=== PATIENT | female | born 1965 | race Caucasian/White ===

== ENCOUNTER 2023-04-16 19:41 | Observation (INO) | payer MEDICAID, SELFPAY ==
--- NOTE | ~2023-04-16 | MR_ITS ---
EXAMINATION: MR BRAIN WITHOUT CONTRAST CLINICAL INFORMATION: Query CVA COMPARISON: CT head on 03/18/2023 TECHNIQUE: MRI of the brain was obtained using routine sequences without contrast. FINDINGS: No acute intracranial hemorrhage or infarct. Scattered and confluent periventricular white matter T2/FLAIR hyperintensities, nonspecific however commonly seen with small vessel ischemic disease. No midline shift or hydrocephalus. Cavum septum pellucidum and vergae. No acute extra-axial fluid collections. The osseous structures are unremarkable. The pituitary gland, pineal gland and remaining midline structures are unremarkable. No orbital pathology. Mild mucosal thickening of the paranasal sinuses. The mastoid air cells are clear. MR/MR head/brain wo con IMPRESSION: No acute intracranial abnormalities.
--- NOTE | ~2023-04-16 | CT_ITS ---
EXAMINATION: CT HEAD WITHOUT CONTRAST CLINICAL INFORMATION: Vertigo COMPARISON: None available. TECHNIQUE: Contiguous axial imaging was performed from the skull base to vertex without intravenous administration of contrast. This CT examination was performed using dose optimization techniques as appropriate, variously including the following: *Automated exposure control *Adjustment of mA and/or kV according to patient size (this includes techniques or standardized protocols for targeted exams where dose is matched to indication/reason for exam; i.e. extremities or head) *Use of iterative reconstruction technique DLP: 616 mGy-cm FINDINGS: There is no intracranial hemorrhage. There is no evidence of acute/subacute cerebral or cerebellar infarction. There is no midline shift or mass effect. No extra-axial fluid collection. Ventricular size is normal. The calvarium is intact. The visualized paranasal sinuses are well aerated. The mastoid air cells are clear. The orbits are symmetric and within normal limits. CT/CT head/brain wo IV con IMPRESSION: No acute intracranial pathology.
--- NOTE | 2023-04-16 19:54 | ECG_ITS ---
Test Reason : SOB Blood Pressure : / mmHG Vent. Rate : 083 BPM Atrial Rate : 083 BPM P-R Int : 164 ms QRS Dur : 080 ms QT Int : 396 ms P-R-T Axes : 072 040 044 degrees QTc Int : 465 ms Normal sinus rhythm Possible Left atrial enlargement ST & T wave abnormality, consider anterolateral ischemia Prolonged QT Abnormal ECG No previous ECGs available Referred By: Generic ED Physician Electronically Signed By:JED JALLOH
[2023-04-16 20:03] VITALS: BP 117/49; PULSE 80; RESP 17; TEMP 35.9; O2SAT 100
[2023-04-16 20:07] VITALS: BP 110/62; PULSE 82; O2SAT 98; BMI 23.8
[2023-04-16 20:31] LABS: MANUAL DIFF FLAG NO
[2023-04-16 20:32] LABS: Basophils Absolute Auto 0.1 X10*3/uL (0.0-0.2); Basophils Percent Auto 0.4 % (0-2); Eosinophils Absolute Auto 0.1 X10*3/uL (0.0-0.4); Eosinophils Percent Auto 0.9 % (0-4); Hematocrit 37.3 % (37.0-47.0); Hemoglobin 12.6 g/dl (12.0-16.0); Imm Gran Abs Auto 0.12 X10*3/uL (0.00-0.03); Imm Gran Pct Auto 0.9 % (0.0-0.4); Lymphocytes Absolute Auto 3.1 X10*3/uL (1.2-4.9); Mean Corpuscular HGB Conc 33.8 g/dl (31.0-35.0); Mean Corpuscular Hemoglobin 28.1 pg (27.0-33.0); Mean Corpuscular Volume 83.3 fL (80.0-98.0); Mean Platelet Volume 9.4 fL (9.4-12.3); Monocytes Absolute Auto 0.7 X10*3/uL (0.1-1.2); Monocytes Percent Auto 4.9 % (2-11); Neutrophils Absolute Auto 9.4 x10*3/uL (2.0-8.3); Neutrophils Percent Auto 69.9 % (45-73); Platelet Count 310 X10*3/uL (160-400); Red Blood Count 4.48 X10*6/uL (4.20-5.50); Red Cell Distribution Width 13.2 % (11.0-16.0); White Blood Count 13.5 X10*3/uL (4.8-10.8)
--- NOTE | 2023-04-16 20:33 | ED.NAVMDI ---
HPI - Nausea/Vomiting/Diarrhea General Chief complaint: Nausea/Vomiting/Diarrhea Stated complaint: NVD x1 hour, ukranian speaking Time Seen by Provider: 04/16/23 20:28 Source: patient and EMS Mode of arrival: EMS Limitations: language barrier History of Present Illness HPI Narrative: History obtained with Kinyarwanda gauge and weigh machine adjuster. She developed room spinning followed by vomiting. She has been unable to move because it causes her to vomit. She denies fever, earache or headache. MD elicited complaint: nausea and vomiting Onset (ago): hour(s) Associated nausea: Yes Associated symptoms: other (dizziness) Related Data Previous Rx's Medication Instructions Recorded meclizine 25 mg tablet 25 mg PO TID #20 tabs 04/16/23 Allergies Allergy/AdvReac Type Severity Reaction Status Date / Time No Known Allergies Allergy Verified 04/16/23 20:07 Review of Systems Review of Systems: Yes all other systems are reviewed and are negative Gastrointestinal: Gastrointestinal: Reports nausea Neurologic: Denies Sensory deficit (Neuro) [facility] Social History Social History Smoked in Last 30 Days: No Use of substances other than those prescribed or required for medical reasons: No Advance Directives: No Advance Directives Information Provided: No Patient : No Physical Exam Vital Signs: Vital Signs: Last Vital Signs Temp 96.6 F L 04/16/23 20:03 Pulse 67 04/16/23 21:58 Resp 12 04/16/23 21:58 BP 118/49 L 04/16/23 21:58 Pulse Ox 100 04/16/23 21:58 O2 Del Method Room Air 04/16/23 21:58 BMI result Body Mass Index 23.8 Const: Other: Patient appearing pale with continual vomiting Nutritional Appearance: average body habitus Orientation/consciousness: oriented to person and patient oriented x3 Limitations: no limitations HEENT: Head: Yes normal to inspection Ears: external ears normal and other (cerumen bilaterally) General nose exam: Normal external nose present Mouth: Normal oral and palatal mucosa present and oropharynx normal Throat: Yes posterior oropharynx normal Eyes: Other: rotatory nystagmus on left lateral gaze Neck: Other: supple Neck: Yes normal visual inspection Chest: Chest palpation & inspection: normal inspection of the chest Resp: Auscultation: clear to auscultation bilaterally Cardio: Jugular venous distension: no JVD Rate: regular rate Rhythm: regular rhythm Heart sounds: S1 normal heart sound present and S2 normal heart sound present GI: Inspection: Yes normal to inspection Palpation (GI): Soft to palpation, nontender and No hepatosplenomegaly present Auscultation: normal bowel sounds : General: Yes no CVA tenderness Back/Spine/Pelvis: Back: no CVA tenderness Skin: General skin exam: no rashes or lesions noted Neuro: General: oriented to person and patient oriented x3 Cranial nerves: Yes CN's II-XII intact bilaterally Motor exam (neuro): 5/5 motor strength present throughout Sensory Exam: No Sensory deficit (Neuro) Extrem: General: Yes normal to inspection Psych: Appearance: grossly normal Course Reevaluation(s) Reevaluation #1: patient vomited her meclizine after 15 minutes will give 25mg more, she is not ready to be discharged Time: 22:24 Reevaluation #2: physician observation: patient placed now for continued vertigo, she is still vomiting, pale and diaphoretic. She is placed in observation to see if she will improve Time: 22:30 Medications Administered Generic Name Dose Route Start Last Admin Trade Name Freq PRN Reason Stop Dose Admin Sodium Chloride 1,000 mls @ 500 mls/hr 04/16/23 20:45 04/16/23 20:42 Ns IVCONT 04/16/23 22:44 500 mls/hr .Q2H PATRICIA Administration Discontinued Medications Generic Name Dose Route Start Last Admin Trade Name Freq PRN Reason Stop Dose Admin Meclizine HCl 50 mg 04/16/23 20:53 04/16/23 21:29 Meclizine Hcl 25 Mg Tablet PO 04/16/23 20:54 50 mg ONCE ONE Administration Ondansetron HCl 4 mg 04/16/23 20:34 04/16/23 20:43 Ondansetron Hcl 4 Mg/2 Ml Vial IVPUSH 04/16/23 20:35 4 mg ONCE ONE Administration Medical Decision Making Differential Diagnosis Differential Diagnoses: The differential diagnosis associated with the presentation includes (cerebral bleed, cva, vertigo, gastrits were all considered) Admission/Observation Consideration of admission/observation: Escalation of care including admission/observation considered (upon arrival patient was considered for admission) Consult Healthcare Provider Discussed with Dr. Wilson who will take patient over Lab Data 04/16/23 20:26 04/16/23 20:26 Labs: Lab Results 04/16/23 Range/Units 20:26 WBC 13.5 H (4.8-10.8) X10*3/uL RBC 4.48 (4.20-5.50) X10*6/uL Hgb 12.6 (12.0-16.0) g/dl Hct 37.3 (37.0-47.0) % MCV 83.3 (80.0-98.0) fL MCH 28.1 (27.0-33.0) pg MCHC 33.8 (31.0-35.0) g/dl RDW 13.2 (11.0-16.0) % Plt Count 310 (160-400) X10*3/uL MPV 9.4 (9.4-12.3) fL Immature Gran % (Auto) 0.9 H (0.0-0.4) % Neut % (Auto) 69.9 (45-73) % Lymph % (Auto) 23.0 (20-40) % Hand % (Auto) 4.9 (2-11) % Eos % (Auto) 0.9 (0-4) % Baso % (Auto) 0.4 (0-2) % Lymph # (Auto) 3.1 (1.2-4.9) X10*3/uL Hand # (Auto) 0.7 (0.1-1.2) X10*3/uL Eos # (Auto) 0.1 (0.0-0.4) X10*3/uL Baso # (Auto) 0.1 (0.0-0.2) X10*3/uL Abs Immat Gran (auto) 0.12 H (0.00-0.03) X10*3/uL Absolute Neuts (auto) 9.4 H (2.0-8.3) x10*3/uL Absolute Nucleated RBC 0.000 (0.0-0.012) X10*3/uL Nucleated RBC % (auto) 0.0 (0.0-0.2) /100WBC Sodium 145 (135-145) mmol/L Potassium 3.2 L (3.3-5.1) mmol/L Chloride 108 (96-108) mmol/L Carbon Dioxide 21 L (22-29) mmol/L Anion Gap 19 (12-20) BUN 15 (9-16) mg/dL Creatinine 0.79 (0.5-1.4) mg/dL Estim Creat Clear Calc 85.9 Estimated GFR > 60 Random Glucose 132 H (60-115) mg/dL Calcium 10.0 (8.4-10.2) mg/dL Total Bilirubin 0.6 (0.0-1.0) mg/dL AST 25 (5-31) U/L ALT 27 (0-31) U/L Alkaline Phosphatase 65 (39-117) U/L Troponin I High Sens < 2.7 (<3.5-17.0) ng/L Total Protein 8.0 (6.5-8.0) g/dL Albumin 4.6 (3.5-5.0) g/dL COVID-19 (VIPIN) Negative (Negative) COVID-19 Clin Com See Note Influenza Type A (ESTEFANY) Negative (Negative) Influenza Type B (ESTEFANY) Negative (Negative) Influenza A & B Note See Note Independent Interpretation I performed an independent interpretation of an: EKG (sinus 80, diffuse nonspecific twave changes) and CT Scan (head: no bleed or mass) Radiology Impression Discussion of test interpretation with radiology: I have reviewed the radiologist's reading. Independent Historian Clinical information obtained from an independent historian. History obtained from or confirmed by: EMS and Other (son) Tests considered The following testing was considered but not selected: MRI of brain but this is first episode of vertigo and cT of head negative Discharge Plan Discharge Clinical Impression: Vertigo Patient Disposition: Still a Patient Instructions: Vertigo (ED) Prescriptions: New meclizine 25 mg tablet 25 mg PO TID Qty: 20 0RF Referrals: Physician,Unknown J [Primary Care Provider] - 5 days
[2023-04-16] MEDS: 0.9 % Sodium Chloride 1,000 ML 500 ML IVCONT (20:42)
[2023-04-16] MEDS: ondansetron HCL 4 MG/2 ML VIAL IVPUSH (20:43)
--- NOTE | 2023-04-16 20:43 | PC.NURSE ---
IVF/medication administered per provider order. ED provider bedside speaking w/ pt using Mongolian coiler operator services. pt actively vomiting at this time.
[2023-04-16 20:47] LABS: Alanine Aminotransferase 27 U/L (0-31); Albumin Level 4.6 g/dL (3.5-5.0); Alkaline Phosphatase 65 U/L (39-117); Anion Gap 19 (12-20); Aspartate Amino Transferase 25 U/L (5-31); Bilirubin Total 0.6 mg/dL (0.0-1.0); Blood Urea Nitrogen 15 mg/dL (9-16); Carbon Dioxide 21 mmol/L (22-29); Chloride 108 mmol/L (96-108); Creatinine Clr Calc Pharmacy 85.9; Estimated Glomerular Filt Rate > 60; Glucose Random 132 mg/dL (60-115); Potassium 3.2 mmol/L (3.3-5.1); Sodium 145 mmol/L (135-145)
[2023-04-16 20:50] LABS: IDNOW Serial# 152EDE1D; Influenza A Negative (Negative); Influenza B2 Negative (Negative)
[2023-04-16 20:51] LABS: COVID-19 Test Negative (Negative); IDNOW Serial# 08D9AD1C
[2023-04-16 20:56] LABS: Troponin-I High Sensitivity < 2.7 ng/L (<3.5-17.0)
--- NOTE | 2023-04-16 21:11 | PC.NURSE ---
pt to CT at this time. will administer medication when pt returns.
[2023-04-16] MEDS: Meclizine HCl 25 MG TABLET 50 MG PO (21:29)
--- NOTE | 2023-04-16 21:32 | PC.NURSE ---
pt medicated via PO at this time. effectiveness pending as well as ability to tolerate PO intake successfully. family bedside. call matos placed within reach.
[2023-04-16 21:58] VITALS: BP 118/49; PULSE 67; RESP 12; O2SAT 100
[2023-04-16 23:39] VITALS: BP 134/62; PULSE 72; RESP 14; O2SAT 100
[2023-04-17] MEDS: ondansetron HCL 4 MG/2 ML VIAL IVPUSH (00:03)
[2023-04-17] MEDS: LORazepam 2 MG/ML VIAL IVPUSH (00:03)
[2023-04-17] MEDS: Meclizine HCl 25 MG TABLET PO (00:04)
[2023-04-17] MEDS: 0.9 % Sodium Chloride 1,000 ML 999 ML IV (00:04)
--- NOTE | 2023-04-17 01:18 | PM.IMHP ---
History of Present Illness Date of Service: 04/17/23 Chief Complaint: Dizziness This is a 57-year-old female with no pertinent past medical history and not on prescription medications who presents to the emergency department for evaluation of dizziness. History obtained with the help of son at bedside as patient is [place] and does not speak Amharic. Patient states she had sudden onset of dizziness while she was lying down. This has never happened before. She also had sensation of room spinning. It was associated with nausea and multiple episodes of nonbloody emesis. Patient states that she also has dizziness with nausea every time she moves. Does endorse issues with balance. No vision changes. No fever, chills, chest discomfort, palpitations, abdominal pain, changes in urinary or bowel habits. In the emergency department, patient with continued dizziness despite multiple doses of meclizine. Potassium was found to be 3.2 Review of Systems Constitutional: Constitutional: Reports no additional constitutional complaints ENT: Reports dizziness Cardiovascular: Cardiovascular: Reports no additional cardiovascular complaints Respiratory: Respiratory: Reports no additional respiratory complaints Gastrointestinal: Gastrointestinal: Reports nausea and Reports vomiting Genitourinary: Genitourinary: Reports no additional female genitourinary complaints Neurologic: Reports dizziness PMFSH Pertinent family history: No family history of early CAD Social History Smoked in Last 30 Days: No Use of substances other than those prescribed or required for medical reasons: No Advance Directives: No Advance Directives Information Provided: No Patient : No Meds Allergies Allergy/AdvReac Type Severity Reaction Status Date / Time No Known Allergies Allergy Verified 04/16/23 20:07 Physical Exam Vital Signs and Narrative: Vital Signs: Last Vital Signs Temp 96.6 F L 04/16/23 20:03 Pulse 72 04/16/23 23:39 Resp 14 04/16/23 23:39 BP 134/62 04/16/23 23:39 Pulse Ox 100 04/16/23 23:39 O2 Del Method Room Air 04/16/23 23:39 BMI result Body Mass Index 23.8 Middle-aged female lying in bed in no distress Neck supple, no JVD Regular rate and rhythm, S1-S2 heard Regular breath sounds bilaterally, no wheezing or crackles appreciated Abdomen soft nontender, no guarding, no rigidity Patient is awake, alert and oriented to self, place, time and person ; no nystagmus, vertical skew test negative Psych: Normal mood No pedal edema Results Labs 04/16/23 20:26 04/16/23 20:26 Labs: Laboratory Results - last 24 hr 04/16/23 04/16/23 20:26 23:58 MCV 83.3 MCH 28.1 MCHC 33.8 RDW 13.2 Plt Count 310 MPV 9.4 Immature Gran % (Auto) 0.9 H Neut % (Auto) 69.9 Lymph % (Auto) 23.0 [place] % (Auto) 4.9 Eos % (Auto) 0.9 Baso % (Auto) 0.4 Lymph # (Auto) 3.1 [place] # (Auto) 0.7 Eos # (Auto) 0.1 Baso # (Auto) 0.1 Abs Immat Gran (auto) 0.12 H Absolute Neuts (auto) 9.4 H Absolute Nucleated RBC 0.000 Nucleated RBC % (auto) 0.0 APTT 28.0 Anion Gap 19 Estim Creat Clear Calc 85.9 Estimated GFR > 60 Random Glucose 132 H Calcium 10.0 Total Bilirubin 0.6 AST 25 ALT 27 Alkaline Phosphatase 65 Troponin I High Sens < 2.7 Total Protein 8.0 Albumin 4.6 COVID-19 (VIPIN) Negative COVID-19 Clin Com See Note Influenza Type A (ESTEFANY) Negative Influenza Type B (ESTEFANY) Negative Influenza A & B Note See Note Imaging Radiologist's Impressions: Impressions Head CT 04/16/23 21:14 IMPRESSION: No acute intracranial pathology. Assessment and Plan (1) Vertigo: Status: Acute Plan This is a 57-year-old female with no pertinent past medical history and not on prescription medications who presents to the emergency department for evaluation of dizziness. #. Vertigo, sudden onset with nausea and vomiting: Will admit patient and obtain MRI to rule out central etiology. Symptomatic treatment #. Hypokalemia due to GI losses: Repleted #. Reactive leukocytosis DVT prophylaxis: Lovenox Full code Quality Stroke Does the patient have a stroke diagnosis?: No VTE Prior VTE?: No VTE Risk Level:: Medical - moderate - high VTE Device Contraindication: Treatment Not Indicated VTE Drug Contraindication: N/A - Med Ordered
[2023-04-17] MEDS: Potassium Chloride/H20 10 MEQ/100 ML PIGGYBACK 100 MEQ IV ×4 (01:49→05:38)
[2023-04-17 03:37] VITALS: BP 115/59; PULSE 80; RESP 16; O2SAT 96
[2023-04-17 05:18] LABS: MANUAL DIFF FLAG NO
[2023-04-17 05:24] LABS: Basophils Percent Auto 0.1 % (0-2); Hematocrit 30.4 % (37.0-47.0); Hemoglobin 10.3 g/dl (12.0-16.0); Imm Gran Abs Auto 0.05 X10*3/uL (0.00-0.03); Imm Gran Pct Auto 0.4 % (0.0-0.4); Lymphocytes Absolute Auto 1.4 X10*3/uL (1.2-4.9); Lymphocytes Percent Auto 12.6 % (20-40); Mean Corpuscular HGB Conc 33.9 g/dl (31.0-35.0); Mean Corpuscular Hemoglobin 28.5 pg (27.0-33.0); Mean Platelet Volume 9.4 fL (9.4-12.3); Monocytes Absolute Auto 0.2 X10*3/uL (0.1-1.2); Monocytes Percent Auto 1.4 % (2-11); Neutrophils Absolute Auto 9.5 x10*3/uL (2.0-8.3); Neutrophils Percent Auto 85.5 % (45-73); Platelet Count 271 X10*3/uL (160-400); Red Blood Count 3.62 X10*6/uL (4.20-5.50); Red Cell Distribution Width 13.3 % (11.0-16.0); White Blood Count 11.1 X10*3/uL (4.8-10.8)
--- NOTE | 2023-04-17 05:33 | MHC.EDTECH ---
Pt was assisted with bedpan 2x's. Pt needed set up assistance with bedpan and limited assistance with personal hygiene. Pt was continent of bladder 2x's.
[2023-04-17 05:37] LABS: Anion Gap 13 (12-20); Blood Urea Nitrogen 11 mg/dL (9-16); Calcium 8.4 mg/dL (8.4-10.2); Carbon Dioxide 23 mmol/L (22-29); Chloride 111 mmol/L (96-108); Creatinine Clr Calc Pharmacy 104.5; Estimated Glomerular Filt Rate > 60; Glucose Random 132 mg/dL (60-115); Potassium 3.8 mmol/L (3.3-5.1); Sodium 143 mmol/L (135-145)
--- NOTE | 2023-04-17 05:53 | MHC.EDTECH ---
Pt was assised one more time with bedpan. Set up assistance with bedpan and limited assistance with hygiene. Pt voided from bladder one more time.
--- NOTE | 2023-04-17 07:25 | PHA.MEDREC ---
Pharmacy Consult ? Medication Reconciliation Pharmacy has completed the medication reconciliation.
[2023-04-17] MEDS: 0.9 % Sodium Chloride Flush 3 ML SYRINGE IVFLUSH (07:53)
[2023-04-17 08:00] VITALS: BP 91/45; PULSE 89; RESP 17; TEMP 36.6; O2SAT 97
--- NOTE | 2023-04-17 09:27 | PC.NURSE ---
Dr. Sykes is at pt's bedside and is aware of b/p, continuous fluids and orthos ordered. Will reassess.
[2023-04-17] MEDS: 0.9 % Sodium Chloride 1,000 ML 100 ML IVCONT (09:40)
[2023-04-17 09:43] VITALS: BP 109/57; PULSE 79; RESP 12; TEMP 36.7; O2SAT 97
--- NOTE | 2023-04-17 10:59 | MHC.CM.PN ---
Addendum entered by Beverly Kerns 04/18/23 09:28: PT DISCHARGED HOME YESTERDAY WITH NO SERVICES VIA FAMILY TRANSPORT Original Note: CM ATTEMPTED TO MEET WITH PT WHO WAS RECEIVING RN CARE CM CALLED PTS SON, MIRIAN [phone] HE REPORTS THE PT LIVES WITH HER AND TWO OTHER CHILDREN WHO ARE IN THEIR 20'S PT IS INDEPENDENT AT BASELINE, USES NO DME AND HAS NO SERVICES PT HAS NO PCP, SON REPORTS HE HAS ENCOURAGED HER TO CONNECT WITH ONE SHE ALSO HAS NO HCP OBSERVATION NOTICE DELIVERED DCP: HOME NO SERVICES VIA FAMILY TRANSPORT
--- NOTE | 2023-04-17 11:25 | HO.PM.IMPN ---
Subjective Subjective Date of Service: 04/17/23 Interval History: dizzy, nausea Physical Exam Vital Signs: Vital Signs: Last Vital Signs Temp 98.0 F 04/17/23 09:43 Pulse 79 04/17/23 09:43 Resp 12 04/17/23 09:43 BP 109/57 L 04/17/23 09:43 Pulse Ox 97 04/17/23 09:43 O2 Del Method Room Air 04/17/23 09:43 BMI result Body Mass Index 23.8 General: AO X 3, no acute distress Resp: CTA bilateral, no accessory muscles used CVS: S1,S2,RRR GI: soft, non tender, non distended Neuro: motor grossly intact, alert Psych: appropriate affect, appropriate insight Objective Data Active Medications Acetaminophen (Acetaminophen 325 Mg Tablet) 650 mg PO Q6H PRN PRN Reason: Pain, Mild (Pain Scale 1-3) Enoxaparin Sodium (Enoxaparin Sodium 40 Mg/0.4 Ml Syringe) 40 mg SUBCUT BEDTIME [facility] Last Admin: 04/17/23 02:42 Dose: Not Given Documented By: JESSICA Non-Admin Reason: Patient Refused Sodium Chloride (Ns) 1,000 mls @ 100 mls/hr IVCONT .Q10H [facility] Last Admin: 04/17/23 09:40 Dose: 100 mls/hr Documented By: MARION Melatonin (Melatonin 3 Mg Tablet) 6 mg PO BEDTIME PRN PRN Reason: Insomnia Ondansetron HCl (Ondansetron Hcl 4 Mg/2 Ml Vial) 4 mg IVPUSH Q8H PRN PRN Reason: Nausea and Vomiting Sodium Chloride (0.9 % Sodium Chloride Flush 3 Ml Syringe) 3 ml IVFLUSH QSHIFT [facility] Last Admin: 04/17/23 07:53 Dose: 3 ml Documented By: MARION Labs 04/17/23 05:13 04/17/23 05:13 Labs: Laboratory Results - last 24 hr 04/16/23 04/16/23 04/17/23 20:26 23:58 05:13 MCV 83.3 84.0 MCH 28.1 28.5 MCHC 33.8 33.9 RDW 13.2 13.3 Plt Count 310 271 MPV 9.4 9.4 Immature Gran % (Auto) 0.9 H 0.4 Neut % (Auto) 69.9 85.5 H Lymph % (Auto) 23.0 12.6 L [place] % (Auto) 4.9 1.4 L Eos % (Auto) 0.9 0.0 Baso % (Auto) 0.4 0.1 Lymph # (Auto) 3.1 1.4 [place] # (Auto) 0.7 0.2 Eos # (Auto) 0.1 0.0 Baso # (Auto) 0.1 0.0 Abs Immat Gran (auto) 0.12 H 0.05 H Absolute Neuts (auto) 9.4 H 9.5 H Absolute Nucleated RBC 0.000 0.000 Nucleated RBC % (auto) 0.0 0.0 APTT 28.0 Anion Gap 19 13 Estim Creat Clear Calc 85.9 104.5 Estimated GFR > 60 > 60 Random Glucose 132 H 132 H Calcium 10.0 8.4 D Total Bilirubin 0.6 AST 25 ALT 27 Alkaline Phosphatase 65 Troponin I High Sens < 2.7 Total Protein 8.0 Albumin 4.6 COVID-19 (VIPIN) Negative COVID-19 Clin Com See Note Influenza Type A (ESTEFANY) Negative Influenza Type B (ESTEFANY) Negative Influenza A & B Note See Note Assessment and Plan (1) Vertigo: Status: Acute Plan 57F presented with dizziness and nausea dizziness and nausea rule out posterior cva mri vs orthostatic hypotension - monitor orthostatics acute hypokalemia replaced dvt prophylaxis - lovenox full code reason for continued hospitalization:awaiting mri Quality Stroke Does the patient have a stroke diagnosis?: No VTE Prior VTE?: No VTE Risk Level:: Medical - moderate - high VTE Device Contraindication: Treatment Not Indicated VTE Drug Contraindication: N/A - Med Ordered
--- NOTE | 2023-04-17 11:47 | PC.NURSE ---
ASSUMED CARE OF PT, VOICE MARINE CARGO INSPECTOR USED TO ANSWER QUESTIONS ON MRI FORM. FORM FAXED OVER, PT READY FOR TRANSPORT. PT ALSO PLACED ON PUREWICK SHE STILL FEELS DIZZY AND NAUSEOUS WITH ANY MOVEMENT.
--- NOTE | 2023-04-17 12:50 | P.DS_ITS ---
DS: Providers Provider Date of Service: 04/17/23 Date of admission: 04/17/23 01:16 Primary care physician: Unknown Physician DS: Diagnosis Discharge Diagnosis (1) Vertigo: Status: Acute DS: Summary Hospital Course Hospital Course: from initial hpi: 57-year-old female with no pertinent past medical history and not on prescription medications who presents to the emergency department for evaluation of dizziness. History obtained with the help of son at bedside as patient is Y[place] and does not speak Amharic. Patient states she had sudden onset of dizziness while she was lying down. This has never happened before. She also had sensation of room spinning. It was associated with nausea and multiple episodes of nonbloody emesis. Patient states that she also has dizziness with nausea every time she moves. Does endorse issues with balance. No vision barlow es. No fever, chills, chest discomfort, palpitations, abdominal pain, changes in urinary or bowel habits. In the emergency department, patient with continued dizziness despite multiple doses of meclizine. Potassium was found to be 3.2 hospital course: Patient was admitted for dizziness and nausea and acute hypokalemia. this was likely related to orthostatic hypotension. She was given IV fluids and potassium was replaced. She underwent MRI to rule out posterior CVA which was negative. Patient will be discharged home she will be given meclizine to use p.r.n. for vertigo. Encouraged to hydrate. Time Attestation Discharge coordination time: Greater than 30 minutes Quality: Safe Use of Opioids Does Pt have an Active Cancer Diagnosis on the Problem List?: No Quality: Stroke Does the patient have a stroke diagnosis?: No Physical Exam Vital Signs: Vital Signs: Last Vital Signs Temp 98.0 F 04/17/23 09:43 Pulse 79 04/17/23 09:43 Resp 12 04/17/23 09:43 BP 109/57 L 04/17/23 09:43 Pulse Ox 97 04/17/23 09:43 O2 Del Method Room Air 04/17/23 09:43 BMI result Body Mass Index 23.8 General: AO X 3, no acute distress Resp: CTA bilateral, no accessory muscles used CVS: S1,S2,RRR GI: soft, non tender, non distended Neuro: motor grossly intact, alert Psych: appropriate affect, appropriate insight DS: Data Data Completed and Pending Labs on day of discharge: Laboratory Results - last 24 hr 04/16/23 04/16/23 04/17/23 20:26 23:58 05:13 WBC 13.5 H 11.1 H RBC 4.48 3.62 L Hgb 12.6 10.3 L Hct 37.3 30.4 L MCV 83.3 84.0 MCH 28.1 28.5 MCHC 33.8 33.9 RDW 13.2 13.3 Plt Count 310 271 MPV 9.4 9.4 Immature Gran % (Auto) 0.9 H 0.4 Neut % (Auto) 69.9 85.5 H Lymph % (Auto) 23.0 12.6 L [place] % (Auto) 4.9 1.4 L Eos % (Auto) 0.9 0.0 Baso % (Auto) 0.4 0.1 Lymph # (Auto) 3.1 1.4 [place] # (Auto) 0.7 0.2 Eos # (Auto) 0.1 0.0 Baso # (Auto) 0.1 0.0 Abs Immat Gran (auto) 0.12 H 0.05 H Absolute Neuts (auto) 9.4 H 9.5 H Absolute Nucleated RBC 0.000 0.000 Nucleated RBC % (auto) 0.0 0.0 APTT 28.0 Sodium 145 143 Potassium 3.2 L 3.8 Chloride 108 111 H Carbon Dioxide 21 L 23 Anion Gap 19 13 BUN 15 11 Creatinine 0.79 0.65 Estim Creat Clear Calc 85.9 104.5 Estimated GFR > 60 > 60 Random Glucose 132 H 132 H Calcium 10.0 8.4 D Total Bilirubin 0.6 AST 25 ALT 27 Alkaline Phosphatase 65 Troponin I High Sens < 2.7 Total Protein 8.0 Albumin 4.6 COVID-19 (VIPIN) Negative COVID-19 Clin Com See Note Influenza Type A (ESTEFANY) Negative Influenza Type B (ESTEFANY) Negative Influenza A & B Note See Note Discharge Plan Discharge Anticipated Discharge Date/Time: 04/17/23 12:48 Patient Disposition: Home, Self-Care Discharge Diagnosis: dizziness Referrals: Physician,Unknown J [Primary Care Provider] - 5 days Discharge Medications: New meclizine 25 mg tablet 25 mg PO TID Qty: 20 0RF Discharge Orders: Discharge Order (Routine); Ordered 04/17/23 Ordered By: Zion Sykes Diet: Advance to usual diet Activity on Discharge: As tolerated Stand Alone Forms: Patient Portal Discharge page Care Plan Goals: recovery Health Concerns: dizziness Plan of Treatment: hydration Assessment: see above Patient Instructions: Vertigo (ED)
== END 2023-04-17 14:16 | disposition home or self-care (01) ==
LOC: HO.ED 04-17 01:02 → HO.EDOVER 04-17 01:20 → HO.S3 04-17 12:28 → HO.EDOVER 04-17 13:05
PROVIDERS: Admitting Provider Student in an Organized Health Care Education/Training Program; Emergency Provider Emergency Medicine; Visit Provider Internal Medicine
DX: R42 Dizziness and giddiness (principal); E87.6 Hypokalemia; R06.02 Shortness of breath; D72.828 Other elevated white blood cell count; Z11.52 Encounter for screening for COVID-19
CPT/HCPCS: 36415; 70450; 70551; 80048; 80053; 84484; 85025; 85730; 87502; 87635; 93005; 96361; 96365; 96366; 96375; 99221; 99285; J2060; J2405; J3480

== ENCOUNTER → 2023-04-16 19:54 | Outpatient (BNV) | payer MEDICAID, SELFPAY | PROVIDERS: Admitting Provider Student in an Organized Health Care Education/Training Program; Emergency Provider Emergency Medicine; Visit Provider Internal Medicine | DX: I45.81 Long QT syndrome (principal) | CPT/HCPCS: 93010 ==

== ENCOUNTER → 2023-04-17 01:16 | Outpatient (BNV) | payer MEDICAID, SELFPAY | PROVIDERS: Admitting Provider Student in an Organized Health Care Education/Training Program; Emergency Provider Emergency Medicine; Visit Provider Student in an Organized Health Care Education/Training Program | DX: R42 Dizziness and giddiness (principal); R11.2 Nausea with vomiting, unspecified; E87.6 Hypokalemia | CPT/HCPCS: 99235; 99499 ==